=== PATIENT | male | born 1945 | race Caucasian/White ===

== ENCOUNTER 2016-06-16 22:49 | Emergency (ER) | payer OTHER ==
[~2016-06-16] VITALS: Ht 162.6 cm; Wt 86.0 kg
[2016-06-16 22:50] VITALS: BP 183/86; PULSE 67; RESP 15; TEMP 97.6; O2SAT 97
[2016-06-16] MEDS ORDERED: BACT800T5 PO (23:09)
--- NOTE | 2016-06-16 23:13 | PD ---
HPI Chief Complaint: Skin Problem Time Seen by Provider: 23:10 Travel History International Travel<30 days: No Contact w/Intl Traveler<30days: No Traveled to known affect area: No History of Present Illness HPI 70-year-old white male presents to emergency Department with complaints of a red lump to his right lower leg she has noted over the last 2 days. He states it is mildly pruritic. He has had no drainage. He is unsure the etiology. He is concerned that this may be an infection. He states that he's visiting a family member who is up here in the hospital being treated for cellulitis. He' s not up-to-date with immunizations. PFS Past Medical History Narrative Medical Hypertension, diabetes Cardiovascular Problems: Yes (HTN) Diabetes: Yes Tetanus Vaccination: > 5 Years Past Surgical History Surgical History: No Previous Surgery Social History Alcohol Use: No Tobacco Use: No Allergies-Medications (Allergen,Severity, Reaction): Coded Allergies: No Known Allergies (Unverified , 06/16/16) Review of Systems Except as stated in HPI: all other systems reviewed are Neg Physical Exam Narrative GENERAL: This is a well-nourished, well-developed patient, in no apparent distress. SKIN: The patient has a 1 cm round macular papular lesion to the right lower lateral calf. There is no fluctuance or pointing. No warmth or erythema, ecchymoses or lesions. Warm and dry. HEAD: Atraumatic. Normocephalic. EYES: PERRL, EOMI, no discharge or injection. No scleral icterus. EARS: Clear NOSE: Nasal turbinates appear normal. THROAT: Mucosa pink and moist. Airway patent. NECK: Trachea midline. supple, moves head freely. LUNGS: Clear to auscultation. CV: Regular in rhythm. ABDOMEN: Soft nontender. EXT: No clubbing cyanosis or edema. Data Data Last Documented VS Vital Signs Date Time Temp Pulse Resp B/P Pulse Ox O2 Delivery O2 Flow Rate FiO2 06/16/16 22:50 97.6 67 15 183/86 97 Room Air MDM Medical Decision Making Medical Screen Exam Complete: Yes Emergency Medical Condition: Yes Medical Record Reviewed: Yes Differential Diagnosis MDM: High Differential diagnoses: Abscess, folliculitis, cellulitis, lymphangitis, abrasion, contact dermatitis, insect bite Narrative Course The patient's wound appears to be an insect bite. I've agreed to treat him with antibiotics due to his concern for possible infection although I do not believe it is truly infected. Diagnosis Primary Impression: Insect bite (nonvenomous), right lower leg, initial encounter Patient Instructions: General Instructions Additional Instructions: Rest. Elevation. keep clean and dry. One percent hydrocortisone cream topically. May take 25 mg of Benadryl as needed for itching. Bactrim DS Daily wound care with soap, water and Neosporin. Follow-up with a primary care doctor in one week. Return to the ER for any problems. Med/Other Pt SpecificInfo: Prescription(s) given Scripts Sulfamethoxazole-Trimethoprim (Bactrim DS)800-160 Mg Tab1 Tab PO BID #14 TAB Prov:Guillaume Brito MD 06/16/16 Disposition: 01 DISCHARGE HOME Condition: Stable Randy Morataya Jun 16, 2016 23:13
== END 2016-06-16 23:15 | disposition home or self-care (01) ==
LOC: NEPK 22:49
DX: L98.8 Other specified disorders of the skin and subcutaneous tissue (principal); W57.XXXA Bitten or stung by nonvenomous insect and other nonvenomous arthropods, initial encounter; I10 Essential (primary) hypertension; E11.9 Type 2 diabetes mellitus without complications
CPT/HCPCS: 99283